=== PATIENT | female | born 1950 | race Caucasian/White ===

== ENCOUNTER → 2016-07-23 | Outpatient (CLI) | payer BC, MEDICARE ==
[2014-12-13 15:52] VITALS: BP 172/97
[~2016-07-23] MED LIST: ACET1TAB33 PO; ACET500T68 PO; ASPI325T8 PO; DIAZ5TAB PO; DOCU-109 PO; ESTR0.62 PO; GABA600T2 PO; HYDR-2679 PO; HYDR-2762 PO; IOHEXOL 180 MG/ML 10 ML VIAL. ONE; LISI-334 PO; METH-37 PO; METH750T2 PO; OMEP20TA8 PO; TRAM50TA PO; methylPREDNISolone ACETATE 40 MG/ML VIAL. ONE; methylPREDNISolone ACETATE 80 MG/ML VIAL. ONE
--- NOTE | 2016-07-24 07:30 | CONS ---
DATE OF CONSULTATION: 07/23/2016 INITIAL CONSULTATION FOR PAIN CLINIC CHIEF COMPLAINT: Low back and right lower extremity pain. HISTORY OF PRESENT ILLNESS: This is a 66-year-old female who presents with a history of pain in the low back and right lower extremity since 1973, but worse over the past year or so. The patient reports that the pain is getting worse. She does have a drop foot on the left side, which she has had for some time and she has had previous back surgery with drop foot after that as well. The patient reports it is a constant, sharp, stabbing, throbbing, shooting pain with tingling and numbness radiating to the left lower extremity, burning, cramping and aching. The patient reports no significant pain on the right side, but significant pain on the left side, mostly in the posterior gluteus, posterior thigh, posterior calf and foot, also some in the anterior lower leg and foot. The patient did have an MRI scan of the lumbar spine dated 04/23/2016 showing previous scarring from surgery at L4-L5 level, she has mild to moderate right, severe left neural foraminal narrowing, left neural foraminal narrowing ____ asymmetric prominent facet arthropathy on the left at L5-S1 level, she has severe left neural foraminal narrowing with severe left prominent facet arthropathy as well. No significant right neural narrowing noted. The patient reports it is worse with standing and walking, better with sitting or lying down, but does awaken her from sleep about 3 times a night, but she has to change positions also, does not affect her bowel or bladder control and does affect her ability to walk. She has a cane and crutches, which she does not like using. She does not have this with her today, but she does use them occasionally by her report. The patient had no other previous therapies, physical therapies or other treatments recently, but did have some with her surgery, which was in 2009. The patient rates her disability rating from 0 to 10, 10 being the worst, is a 9 with family and home responsibilities, recreation, social activity, occupation, self-care and life support activities, all 9/10. PAST MEDICAL HISTORY: Significant for hearing loss, cigarette smoking, hypertension, arthritis, migraine headaches and left foot drop. PREVIOUS SURGERIES: Include lumbar decompression in 2009, foot surgery in 2009, cholecystectomy in the , hysterectomy in ____, tonsillectomy as a child, right knee surgery as a teenager, ____ surgery x 2. CURRENT MEDICATIONS: Include daily baby aspirin, Colace, acetaminophen, omeprazole, tramadol, gabapentin. ALLERGIES: THE PATIENT IS ALLERGIC TO DARVON AND SULFA. SOCIAL HISTORY: The patient smokes about 1 pack of cigarettes a week for the last 35 years, has a small glass of wine about twice a year on average. The patient reports no other illegal illicit drugs or other substances or other habits. The patient lives in [place], [place]. REVIEW OF SYSTEMS: Positive for those items mentioned in history of present illness. It is complete, full and well documented on the patient's chart. PHYSICAL EXAMINATION: VITAL SIGNS: Today, the patient's blood pressure is 147/82, pulse is 71, respirations 18, temperature is 98.0 degrees Fahrenheit. Height is 5 feet 7 inches, weight is 169 pounds. GENERAL: The patient is awake, alert, oriented, appropriate, has a very pleasant demeanor. HEENT: Shows normocephalic, atraumatic. Extraocular movements are intact and symmetrical. The patient is wearing eye glasses. Oral cavity, mucous membranes moist and pink. Dentition is intact. NECK: Shows anterior throat supple without palpable lymphadenopathy noted. Swallow reflex is symmetrical. CHEST: Shows normal on inspection. Breath sounds are clear to auscultation bilaterally. HEART: Shows S1 and S2 clear. No murmurs auscultated. ABDOMEN: Soft, nontender, nondistended. No palpable organomegaly is noted. No rebound or guarding demonstrated. BACK: Shows spine grossly in the midline. Normal appearing thoracic kyphosis, some mild flattening of the lumbar lordotic curvature, previously well-healed surgical scars noted in the lumbar distribution. Lumbar paraspinous musculature shows symmetrical on inspection, with palpation shows tenderness with palpation bilaterally in the paraspinous musculature without significant radiation of pain. The patient does show good rotational motion of the lumbar spine, both laterally as well as extension and flexion without difficulty. No tenderness over the sacrum or sacroiliac regions over the spinous processes bilaterally. EXTREMITIES: The patient's lower extremities show deep tendon reflexes at 2+ in the patellar, 1+ tendo-calcaneus tendons, are equal. Motor exam is strong with 5/5 dorsiflexion and extension on the right and approximately 4/5 on the left. The patient does have a left foot drop, which is not complete on the left side. Peripheral pulses are 1+ posterior tibial and dorsalis pedis pulses. No peripheral edema is noted. No clubbing, no cyanosis. Lower extremities are warm and dry to touch, equal in color and appearance. The patient is able to stand, stand on her toes without difficulty or loss of balance, walks with a normal-appearing gait, does not appear to favor the right or left lower extremity, currently, is not using any assistive devices with her in the office today. IMPRESSION: 1. This is a 66-year-old female with a long history of low back and left lower extremity pain as noted. 2. MRI scan of the lumbar spine as noted. 3. History of hypertension. 4. Hearing loss. 5. Arthritis. PLAN: Options were discussed with the patient including conservative medical managements, physical therapies, interventional techniques and she would like to pursue interventional techniques. We discussed a caudal approach epidural steroid injection using description as well as anatomical models to describe the procedure. Risks were then discussed including, but not limited to bleeding, infection, possibility of epidural hematoma and subsequent neurological compromise, dural punctures, headaches, spinal cord and/or nerve damage, side effects of steroid medication and poor results regarding pain control. The patient understands and wishes to proceed. The patient will return to the clinic in approximately 2 weeks for followup, was counseled on return appointment, activity level and side effects to be aware of. DIAGNOSIS: Lumbar radiculopathy with spinal stenosis and post-lumbar laminectomy syndrome. PROCEDURE: Caudal approach epidural steroid injection using the C-arm fluoroscopic guidance under sterile prep and drape using local anesthetic. MEDICATIONS INJECTED: 120 mg Depo-Medrol plus 10 mL preservative free normal saline and 2 mL Isovue for contrast. CONDITION AT DISCHARGE: Stable. The patient tolerated the procedure well, had no complications. ABRAHAM CRAMER MD DR: ALE/reba JOB#: [id number] / [id number]
== END | disposition home or self-care (01) ==
LOC: PNCL 12:45
PROVIDERS: ATTEND Anesthesiology
DX: M48.06 Spinal stenosis, lumbar region (principal); M54.16 Radiculopathy, lumbar region; M96.1 Postlaminectomy syndrome, not elsewhere classified; H91.90 Unspecified hearing loss, unspecified ear; F17.210 Nicotine dependence, cigarettes, uncomplicated; I10 Essential (primary) hypertension; M19.90 Unspecified osteoarthritis, unspecified site; Z90.49 Acquired absence of other specified parts of digestive tract; Z90.710 Acquired absence of both cervix and uterus; Z79.82 Long term (current) use of aspirin; Z88.5 Allergy status to narcotic agent; Z88.2 Allergy status to sulfonamides
CPT/HCPCS: 62323; J1030; J1040

== ENCOUNTER → 2019-04-07 | Outpatient (CLI) | payer MEDICARE ==
[2014-12-13 15:52] VITALS: BP 172/97
[~2019-04-07] MED LIST changes: +ACET-704 PO; +AMLO10TA8 PO; +EPIPEN 2-P0.3 MG/0.3 IM; +FLUT16SP NS; -GABA600T2 PO; +GABA600T7 PO; -HYDR-2762 PO; +HYDR-2765 PO; +METH-38 PO; +PANT40TA77 PO
--- NOTE | 2019-04-07 22:18 | PAIN ---
DATE OF SERVICE: 04/07/2019 PROGRESS NOTE FOR PAIN CLINIC DIAGNOSES: Cervical radiculopathy with cervical degenerative disk disease with cervical spinal stenosis and post-cervical laminectomy syndrome. HISTORY OF PRESENT ILLNESS: The patient is a 68-year-old female who returns for followup, last seen in 2017. The patient has been doing fairly well, but had stumbled and fell a few weeks ago at home. She is using her crutches as her feet were bothering her. She does have some foot drop on the left side. This was bothering her. She was using the crutches and fell on to her right side causing some significant pain in the base of the neck, now radiating to the right upper extremity, in the arm and into the hand with numbness and tingling in all the fingers, especially the thumb and first and second fingers. The patient reports the pain is anywhere from a 6 to scale of 10, but reports it awakens her from sleep several times every night, does not affect her bowel or bladder control, but does affect her ability to walk using her crutches with her right hand. The patient reports that she has had chiropractic treatment about 6 months ago, which did decrease some of the pain in the shoulder and neck at the time, but since the fall, it has gotten worse, so she has not tried chiropractic since that time. The patient has had other epidural injections in the past, which have always helped as well. The patient reports the pain is constant, sharp, stabbing, throbbing, shooting now with numbness and tingling in the right upper extremity with a burning quality in the arm and hand as well with some weakness, but no overt motor loss, some difficulty with repetitive motions, reaching over her head with her right hand lifting weights and exercise with the right arm. The patient did have a recent MRI scan of the cervical spine showing mild spinal canal stenosis at C3-C4 and C5-C6 with multilevel disk disease, variable recess stenosis and multiple level stenosis with high-grade neural foraminal stenosis bilaterally at C5-C6, postoperative changes, and diskectomy at C5-C6 and C6-C7. PAST MEDICAL HISTORY: Significant for hearing loss, hearing aids; hypertension, hypercholesterolemia, hiatal hernia, drop foot on the left. PAST SURGICAL HISTORY: Previous surgeries include hysterectomy, multiple ankle and feet surgeries, tonsillectomy, appendectomy, cervical fusion with hardware in 2015. CURRENT MEDICATIONS: Include codeine, amlodipine, fluticasone, gabapentin, epinephrine, colestipol, cholecalciferol, tramadol, pantoprazole, methocarbamol and gabapentin. ALLERGIES: THE PATIENT IS ALLERGIC TO SULFA AND DARVON. REVIEW OF SYSTEMS: The patient's review of systems is positive for those items mentioned in history of present illness. All systems reviewed and otherwise negative. It is complete, full and well documented on the patient's chart. PHYSICAL EXAMINATION: VITAL SIGNS: The patient's blood pressure is 157/91, pulse 85, respirations 18, temperature 98.2 degrees Fahrenheit, height is 5 feet 6 inches, weight is 169 pounds. GENERAL: The patient is awake, alert, oriented, appropriate, very pleasant demeanor. HEENT: Head shows normocephalic, atraumatic. Extraocular movements are intact and symmetrical. Oral cavity: Mucous membranes moist and pink. Dentition is intact. NECK: Shows anterior throat supple without palpable lymphadenopathy noted. Swallow reflex symmetrical. CHEST: Shows normal on inspection. Breath sounds are clear bilaterally. HEART: Shows S1, S2 clear. No murmurs auscultated. ABDOMEN: Soft, nontender, nondistended. No palpable organomegaly is noted. No rebound or guarding demonstrated. BACK: Shows spine grossly in the midline. Normal appearing thoracic kyphosis and lumbar lordotic curvature as well as cervical lordotic curvature. Well-healed surgical scars noted in the anterior aspect of the cervical spine. Posterior cervical paraspinous muscle shows symmetrical on inspection, with palpation shows some moderate tenderness diffusely without asymmetry, atrophy or hypertrophy. The patient has good rotational motion of cervical spine, both laterally as well as extension and flexion without significant increase in pain. EXTREMITIES: The patient's upper extremities show deep tendon reflexes at 2+ in the biceps and triceps tendons. Motor exam is strong with photographic platemaker strength rated at 5/5 as is bicep and tricep flexion with slightly less strength in the right biceps than the left at approximately 4 on a scale of 5, but still strong and intact without loss of strength on resistance and without significant pain reported. Shoulder shrug is strong and intact without loss of strength on resistance as is abduction of the shoulders to 90 degrees without loss of strength with resistance as well. Peripheral pulses are 2+ radial distribution. No peripheral edema bilaterally. Options were discussed with the patient. The patient's old chart was reviewed as her current medication regimen updated. Current review of systems updated today as well. We will proceed with a cervical epidural steroid injection today with fluoroscopic guidance. Risks were again discussed including, but not limited to bleeding, infection, possibility of epidural hematoma, subsequent neurological compromise, dural puncture, headaches, spinal cord and/or nerve damage, side effects of steroid medication and poor results regarding pain control. The patient understands and wished to proceed. The patient will return to clinic in approximately 2 weeks for followup. She was counseled as to return appointment, activity level and side effects to be aware of. DIAGNOSES: Cervical radiculopathy with cervical degenerative disk disease and cervical spinal stenosis, post-cervical laminectomy syndrome. PROCEDURE: Cervical epidural steroid injection with translaminar approach at C6-C7 level using C-arm fluoroscopic guidance under sterile prep and drape using local anesthetic. MEDICATION INJECTED: A total of 120 mg Depo-Medrol plus 5 mL of preservative-free normal saline and 2 mL of contrast. CONDITION AT DISCHARGE: Stable. The patient tolerated procedure well, had no complications. ABRAHAM CRAMER MD DR: ALE/reba JOB#: [id number] / [id number]
== END ==
LOC: PNCL 13:01
PROVIDERS: ATTEND Anesthesiology
DX: M50.123 Cervical disc disorder at C6-C7 level with radiculopathy (principal); M48.02 Spinal stenosis, cervical region; M96.1 Postlaminectomy syndrome, not elsewhere classified; I10 Essential (primary) hypertension; E78.00 Pure hypercholesterolemia, unspecified; K44.9 Diaphragmatic hernia without obstruction or gangrene; Z90.710 Acquired absence of both cervix and uterus; Z98.890 Other specified postprocedural states; Z88.1 Allergy status to other antibiotic agents; Z88.8 Allergy status to other drugs, medicaments and biological substances
CPT/HCPCS: 62321; J1030; J1040; Q9965